=== PATIENT | female | born 1980 | race African-American/Black ===

== ENCOUNTER 2017-11-07 15:19 | Emergency (ER) | payer OTHER ==
[~2017-11-07] VITALS: Ht 157.5 cm; Wt 88.5 kg
[~2017-11-07 15:19] MED LIST: ADVAIR 250-501 EACH INH; ALBUTEROL INH INH; ALBUTEROL2.5 MG/0.1 IH; AMOXICILLIN875 MG PO; BENADRYL25 MG PO; CIPROFLOXACIN500 M1 PO; NOHOMEMEDICATIONS; PHENERGAN 25 MG25 M1 PO; PREDNISONE 20 M20 MG PO; PREDNISONE 5 MG5 M1 PO; PREDNISONE50 MG PO; PROAIR HFA8.5 GM INH; PROVENTIL HFA6.7 G1 INH; ULTRAM 50MG TAB50 MG PO; VENTOLIN17 GM INH; ZANTAC 150MG T150 M1 PO; ZOFRAN4 MG PO; birth control
[2017-11-07] MEDS ORDERED: MOBIC15 MG PO (16:06)
[2017-11-07 16:51] VITALS: BP 146/93
== END 2017-11-07 16:36 | disposition home or self-care (01) ==
LOC: ER 15:19
DX: S60.211A Contusion of right wrist, initial encounter (principal); S50.11XA Contusion of right forearm, initial encounter; I10 Essential (primary) hypertension; Z90.49 Acquired absence of other specified parts of digestive tract; Z91.040 Latex allergy status; Z88.8 Allergy status to other drugs, medicaments and biological substances; Z88.6 Allergy status to analgesic agent; Z86.2 Personal history of diseases of the blood and blood-forming organs and certain disorders involving the immune mechanism; X58.XXXA Exposure to other specified factors, initial encounter; Y93.89 Activity, other specified; Y92.89 Other specified places as the place of occurrence of the external cause; Y99.8 Other external cause status

== ENCOUNTER 2018-10-28 15:26 | Emergency (ER) | payer OTHER ==
[~2018-10-28] VITALS: Ht 157.5 cm; Wt 89.8 kg
[~2018-10-28 15:26] MED LIST changes: +MOBIC15 MG PO
[2018-10-28] MEDS ORDERED: ULTRAM 50MG TAB50 MG PO (16:45)
[2018-10-28 16:56] VITALS: BP 123/68
== END 2018-10-28 16:57 | disposition home or self-care (01) ==
LOC: ER 15:26
DX: S60.011A Contusion of right thumb without damage to nail, initial encounter (principal); J45.909 Unspecified asthma, uncomplicated; D64.9 Anemia, unspecified; I10 Essential (primary) hypertension; Z85.43 Personal history of malignant neoplasm of ovary; Z90.49 Acquired absence of other specified parts of digestive tract; Z88.6 Allergy status to analgesic agent; Z91.040 Latex allergy status; W23.0XXA Caught, crushed, jammed, or pinched between moving objects, initial encounter; Y93.89 Activity, other specified; Y92.89 Other specified places as the place of occurrence of the external cause; Y99.8 Other external cause status

== ENCOUNTER 2018-11-22 09:44 | Emergency (ER) | payer OTHER ==
[~2018-11-22] VITALS: Ht 157.5 cm; Wt 90.3 kg
[2018-11-22] MEDS ORDERED: ULTRAM 50MG TAB50 MG PO (11:49)
[2018-11-22] MEDS ORDERED: CYCLOBENZAPRINE5 MG PO (11:49)
[2018-11-22 12:33] VITALS: BP 129/81
== END 2018-11-22 12:33 | disposition home or self-care (01) ==
LOC: ER 09:44
DX: M79.631 Pain in right forearm (principal); M79.661 Pain in right lower leg; M54.9 Dorsalgia, unspecified; R07.89 Other chest pain; R42 Dizziness and giddiness; J45.909 Unspecified asthma, uncomplicated; I10 Essential (primary) hypertension; Z98.890 Other specified postprocedural states; Z85.43 Personal history of malignant neoplasm of ovary; Z90.49 Acquired absence of other specified parts of digestive tract; Z86.2 Personal history of diseases of the blood and blood-forming organs and certain disorders involving the immune mechanism; Z88.6 Allergy status to analgesic agent; Z91.040 Latex allergy status; Z88.8 Allergy status to other drugs, medicaments and biological substances; V89.2XXA Person injured in unspecified motor-vehicle accident, traffic, initial encounter; Y93.89 Activity, other specified; Y92.89 Other specified places as the place of occurrence of the external cause; Y99.8 Other external cause status

== ENCOUNTER 2019-01-15 19:37 | Emergency (ER) | payer OTHER ==
[~2019-01-15] VITALS: Ht 157.5 cm; Wt 89.8 kg
[~2019-01-15 19:37] MED LIST changes: +CYCLOBENZAPRINE5 MG PO
[2019-01-15] MEDS ORDERED: NAPROSYN500 MG PO (20:32)
[2019-01-15] MEDS ORDERED: NORFLEX100 MG PO (20:32)
[2019-01-15 20:49] VITALS: BP 135/74
== END 2019-01-15 20:49 | disposition home or self-care (01) ==
LOC: ER 19:37
DX: S16.1XXA Strain of muscle, fascia and tendon at neck level, initial encounter (principal); M43.6 Torticollis; I10 Essential (primary) hypertension; J45.909 Unspecified asthma, uncomplicated; Z88.6 Allergy status to analgesic agent; Z88.8 Allergy status to other drugs, medicaments and biological substances; Z91.040 Latex allergy status; Z86.2 Personal history of diseases of the blood and blood-forming organs and certain disorders involving the immune mechanism; Z90.49 Acquired absence of other specified parts of digestive tract; Z90.89 Acquired absence of other organs; Z85.43 Personal history of malignant neoplasm of ovary; V89.2XXA Person injured in unspecified motor-vehicle accident, traffic, initial encounter; Y92.89 Other specified places as the place of occurrence of the external cause; Y93.89 Activity, other specified; Y99.8 Other external cause status

== ENCOUNTER 2019-02-03 07:31 | Emergency (ER) | payer OTHER ==
[~2019-02-03] VITALS: Ht 157.5 cm; Wt 89.8 kg
[~2019-02-03 07:31] MED LIST changes: +NAPROSYN500 MG PO; +NORFLEX100 MG PO
[2019-02-03 10:21] VITALS: BP 114/84
== END 2019-02-03 10:22 | disposition home or self-care (01) ==
LOC: ER 07:31
DX: M25.571 Pain in right ankle and joints of right foot (principal); L29.9 Pruritus, unspecified; T39.8X5A Adverse effect of other nonopioid analgesics and antipyretics, not elsewhere classified, initial encounter; Y92.89 Other specified places as the place of occurrence of the external cause; J45.909 Unspecified asthma, uncomplicated; I10 Essential (primary) hypertension; Z90.49 Acquired absence of other specified parts of digestive tract; Z88.6 Allergy status to analgesic agent; Z91.040 Latex allergy status

== ENCOUNTER 2020-02-07 14:27 | Emergency (ER) | payer OTHER ==
[~2020-02-07] VITALS: Ht 157.5 cm; Wt 89.8 kg
[2020-02-07 15:43] LABS: ABSOLUTE NEUTROPHILS 5.4 thou/uL (1.4-8.2); BASOPHILS 0.4 % (0.0-2.0); EOSINOPHILS 0.6 % (0.0-3.0); HEMATOCRIT 40.4 % (37.0-47.0); HEMOGLOBIN 13.7 gm/dL (12.0-15.0); LYMPHOCYTES 26.2 % (24.0-44.0); MCH 28.9 pg (26.0-34.0); MCHC 33.9 g/dL (28.0-37.0); MCV 85.1 fL (80.0-100.0); MONOCYTES 3.9 % (1.0-8.0); PLATELET COUNT 302 thou/uL (150-400); POLYS 68.9 % (36.0-66.0); RBC 4.74 mil/uL (4.20-5.00); RDW 14.4 % (10.5-14.5); WBC 7.8 thou/uL (4.0-11.0)
[2020-02-07 15:45] LABS: ANION GAP 13 mmol/L (7-16); BUN 8 mg/dL (7-18); CALCIUM 8.8 mg/dL (8.5-10.1); CHLORIDE 102 mmol/L (98-107); CO2 21 mmol/L (21-32); GLUCOSE 103 mg/dL (74-106); POTASSIUM 3.3 mmol/L (3.5-5.1); SODIUM 136 mmol/L (136-145)
[2020-02-07 15:56] LABS: ALBUMIN 3.6 g/dL (3.4-5.0); SGOT 21 U/L (15-37); SGPT 23 U/L (30-65); TOTAL BILIRUBIN 0.4 mg/dL (<0.1-1.0); TOTAL PROTEIN 8.3 g/dL (6.4-8.2); TROPONIN-I <0.06 ng/mL (<0.06)
[2020-02-07] MEDS ORDERED: IPRAT-ALBUT 0.5-3 ML INH (16:23)
[2020-02-07] MEDS ORDERED: PREDNISONE 20 M20 MG PO (17:02)
[2020-02-07] MEDS ORDERED: ATIVAN0.5 M1 PO (17:02)
[2020-02-07 17:18] VITALS: BP 112/66
== END 2020-02-07 17:19 | disposition home or self-care (01) ==
LOC: ER 14:27
PROVIDERS: Physician Assistant
DX: J45.901 Unspecified asthma with (acute) exacerbation (principal); F41.9 Anxiety disorder, unspecified; I10 Essential (primary) hypertension; Z86.2 Personal history of diseases of the blood and blood-forming organs and certain disorders involving the immune mechanism; Z90.49 Acquired absence of other specified parts of digestive tract; Z85.43 Personal history of malignant neoplasm of ovary; Z91.048 Other nonmedicinal substance allergy status; Z91.040 Latex allergy status; Z88.6 Allergy status to analgesic agent

== ENCOUNTER 2020-05-17 18:48 | Emergency (ER) | payer OTHER ==
[~2020-05-17] VITALS: Ht 157.5 cm; Wt 89.8 kg
[~2020-05-17 18:48] MED LIST changes: +ATIVAN0.5 M1 PO; +IPRAT-ALBUT 0.5-3 ML INH
[2020-05-17 20:17] LABS: ABSOLUTE NEUTROPHILS 3.5 thou/uL (1.4-8.2); BASOPHILS 0.7 % (0.0-2.0); HEMATOCRIT 37.9 % (37.0-47.0); HEMOGLOBIN 13.1 gm/dL (12.0-15.0); LYMPHOCYTES 39.2 % (24.0-44.0); MCHC 34.5 g/dL (28.0-37.0); MONOCYTES 6.5 % (1.0-8.0); PLATELET COUNT 268 thou/uL (150-400); POLYS 50.6 % (36.0-66.0); RBC 4.52 mil/uL (4.20-5.00); WBC 6.9 thou/uL (4.0-11.0)
[2020-05-17 20:21] LABS: CALCIUM 8.6 mg/dL (8.5-10.1); CREATININE 0.9 mg/dL (0.6-1.0); POTASSIUM 3.7 mmol/L (3.5-5.1)
[2020-05-17 20:31] LABS: URINE BILIRUBIN NEGATIVE (Negative); URINE BLOOD NEGATIVE (Negative); URINE CLARITY CLEAR; URINE COLOR YELLOW; URINE GLUCOSE-RANDOM* NEGATIVE (Negative); URINE KETONES NEGATIVE (Negative); URINE LEUKOCYTES-REFLEX 2+ (Negative); URINE NITRITE-REFLEX NEGATIVE (Negative); URINE PROTEIN (DIPSTICK) NEGATIVE (Negative); URINE SPECIFIC GRAVITY 1.015 (1.005-1.035); URINE UROBILINOGEN 0.2 E.U./dl (0.2-1.0)
[2020-05-17 20:37] LABS: AMP/METHAMP Negative (Negative); BARBITURATES Negative (Negative); BENZODIAZEPINES Negative (Negative); COCAINE Negative (Negative); METHADONE Negative (Negative); OPIATES Negative (Negative); PCP Negative (Negative)
[2020-05-17 20:39] LABS: SQUAMOUS 0-3 Few /LPF (0-3)
[2020-05-17 20:40] LABS: BACTERIA-REFLEX 1-9 Few /HPF (None Seen); CASTS None Seen /LPF (None Seen); CRYSTALS None Seen /LPF (None Seen); URINE RBC None Seen /HPF (0-2); URINE WBC-REFLEX 6-15 Few /HPF (0-5)
[2020-05-17] MEDS ORDERED: METRONIDAZOLE500 M4 PO (20:46)
[2020-05-17 21:48] VITALS: BP 135/72
--- NOTE | 2020-05-19 08:15 | EKG ---
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 : 1980 Requested By: Cecelia Ma Order Number: [id number] MD: Ashok Chaidez Measurements Intervals [place] Rate: 58 P: 69 NE: 164 QRS: -20 QRSD: 91 T: 34 QT: 413 QTc: 406 Interpretive Statements Sinus bradycardia Borderline left axis deviation Compared to ECG 06/29/2011 09:23:42 No significant change was found Electronically Signed On 05-19-2020 8:14:56 CDT by Ashok Chaidez [email or web address] <ELECTRONICALLY SIGNED> By: Ashok Chaidez MD, [facility] 05/19/20813 18 18 Ashok Chaidez MD, [facility] /EPI
== END 2020-05-17 21:49 | disposition home or self-care (01) ==
LOC: ER 18:48
PROVIDERS: Nurse Practitioner
DX: A59.9 Trichomoniasis, unspecified (principal); R53.83 Other fatigue; M25.562 Pain in left knee; M25.561 Pain in right knee; M25.571 Pain in right ankle and joints of right foot; M79.602 Pain in left arm; I10 Essential (primary) hypertension; J45.909 Unspecified asthma, uncomplicated; Z90.49 Acquired absence of other specified parts of digestive tract; Z88.8 Allergy status to other drugs, medicaments and biological substances; Z91.040 Latex allergy status

== ENCOUNTER 2021-08-12 13:08 | Emergency (ER) | payer OTHER ==
[~2021-08-12] VITALS: Ht 157.5 cm; Wt 78.0 kg
[~2021-08-12 13:08] MED LIST changes: +METRONIDAZOLE500 M4 PO
[2021-08-12 13:37] LABS: ABSOLUTE NEUTROPHILS 5.4 thou/uL (1.4-8.2); BASOPHILS 0.4 % (0.0-2.0); HEMATOCRIT 44.5 % (37.0-47.0); HEMOGLOBIN 15.1 gm/dL (12.0-15.0); LYMPHOCYTES 9.5 % (24.0-44.0); MCH 30.3 pg (26.0-34.0); MCHC 33.9 g/dL (28.0-37.0); MCV 89.4 fL (80.0-100.0); MONOCYTES 4.1 % (1.0-8.0); PLATELET COUNT 301 thou/uL (150-400); RBC 4.98 mil/uL (4.20-5.00); RDW 13.7 % (10.5-14.5); WBC 6.2 thou/uL (4.0-11.0)
[2021-08-12 13:58] LABS: ALBUMIN 3.7 g/dL (3.4-5.0); CALCIUM 9.1 mg/dL (8.5-10.1); MAGNESIUM 1.8 mg/dL (1.8-2.4); TOTAL PROTEIN 8.3 g/dL (6.4-8.2)
[2021-08-12 14:01] LABS: POTASSIUM 2.6 mmol/L (3.5-5.1)
[2021-08-12 16:56] LABS: CALCIUM 7.8 mg/dL (8.5-10.1); CREATININE 0.9 mg/dL (0.6-1.0); POTASSIUM 3.3 mmol/L (3.5-5.1)
[2021-08-12] MEDS ORDERED: ZOFRAN ODT4 MG PO (17:06)
[2021-08-12 17:12] VITALS: BP 112/65
--- NOTE | 2021-08-13 10:17 | EKG ---
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 <ELECTRONICALLY SIGNED> By: Florencio Ernst MD 08/13/21 1016 [id number] Florencio Ernst MD /[facility]
== END 2021-08-12 17:19 | disposition home or self-care (01) ==
LOC: ER 13:08
PROVIDERS: Emergency Medicine
DX: R19.7 Diarrhea, unspecified (principal); R20.0 Anesthesia of skin; R11.10 Vomiting, unspecified; E87.6 Hypokalemia; J45.909 Unspecified asthma, uncomplicated; I10 Essential (primary) hypertension; Z90.49 Acquired absence of other specified parts of digestive tract; Z90.89 Acquired absence of other organs; Z85.43 Personal history of malignant neoplasm of ovary; Z79.899 Other long term (current) drug therapy; Z88.6 Allergy status to analgesic agent; Z91.040 Latex allergy status